=== PATIENT | female | born 1975 | race African-American/Black ===

== ENCOUNTER 2019-01-14 10:36 | Day surgery (SDC) | payer OTHER, MEDICAID ==
[~2019-01-14] VITALS: Ht 160 cm; Wt 128.5 kg
[~2019-01-14 10:36] MED LIST: ALBU18HF2 IH; ASPI-1159 PO; CARV25TA47 PO; CLON-457 PO; FERR-71 MT; FURO20TA4 PO; GLYB5TAB7 PO; HYDR-4001 PO; HYDR100T26 PO; INSLIS SUBCUT; INSU3INS6 SUBCUT; IPRA3AMP31 NEB; ISOS30TA12 PO; LORA10TA7 PO; MECL-109 MT; MOME13HF2 INH; SIMV10TA6 PO; ZOLP5TAB2 PO
[2019-01-14] MEDS ORDERED: SODIUM CHLORIDE 0.9% 500 ML IV NR (10:45)
[2019-01-14 11:34] LABS: BASOPHILS % 0.7 % (0.0-2.0); EOSINOPHILS % 0.8 % (0.0-5.0); HEMATOCRIT. 38.2 % (36.0-48.0); HEMOGLOBIN. 12.3 g/dL (12.0-16.0); LYMPHOCYTES % 29.2 % (20.0-50.0); MEAN CORPUSCULAR HEMOGLOBIN 29.6 pg (28.0-32.0); MEAN PLATELET VOLUME 8.1 fl (7.4-10.4); MONOCYTES % 8.3 % (2.0-8.0); PLATELET 276 x1000/uL (130-400); RED BLOOD CELL COUNT 4.16 mill/uL (4.2-5.4); RED CELL DISTRIBUTION WIDTH 16.8 % (11.6-14.6)
[2019-01-14 11:35] LABS: UCG SCREEN NEGATIVE
[2019-01-14 11:41] LABS: PROTHROMBIN TIME 10.1 sec (9.6-11.0)
[2019-01-14] MEDS ORDERED: THROMBIN (BOVINE) 5000 UNITS/VIAL TOP ONE (12:10)
[2019-01-14] MEDS ORDERED: LIDOCAINE HCL 1% 20ML VIAL (Pyxis) INJ ONE ×2 (12:10→14:23)
[2019-01-14] MEDS ORDERED: HEPARIN SODIUM 1,000 UNIT/1ML VIAL IV ONE ×2 (12:11→20:15)
[2019-01-14] MEDS ORDERED: BUPIVACAINE HCL/PF 0.5% (5MG/ML) 10ML ONE ×2 (12:11→12:44)
[2019-01-14] MEDS ORDERED: BACITRACIN 50,000 UNITS/VIAL ONE (12:14)
[2019-01-14] MEDS ORDERED: INSU100I32 SQ (12:17)
[2019-01-14] MEDS ORDERED: ASPI-1159 PO (12:20)
[2019-01-14] MEDS ORDERED: CLOP75TA16 PO (12:20)
[2019-01-14] MEDS ORDERED: CLINDAMYCIN 900 MG in DEXTROSE 5% WATER 50 ML IV ONE (12:32)
[2019-01-14] MEDS ORDERED: PROPOFOL 200MG/20ML VIAL IV ONE (14:22)
[2019-01-14] MEDS ORDERED: FENTANYL CITRATE/PF 50MCG/ML 2ML VIAL ONE (14:22)
[2019-01-14] MEDS ORDERED: MIDAZOLAM HCL 2 MG/2 ML VIAL ONE (14:22)
[2019-01-14] MEDS ORDERED: ROCURONIUM BROMIDE 10MG/ML VIAL 5ML IV ONE (14:23)
[2019-01-14] MEDS ORDERED: SODIUM CHLORIDE 0.9% 10ML VIAL ONE (14:32)
[2019-01-14] MEDS ORDERED: EPHEDRINE SULFATE 50MG/ML VIAL ONE (14:32)
[2019-01-14] MEDS ORDERED: PAPAVERINE HCL 30 MG/ML 2ML IV ONE (15:28)
[2019-01-14] MEDS ORDERED: DEXTROSE 50% WATER 50ML SYRINGE IV ONE (15:45)
[2019-01-14] MEDS ORDERED: ONDANSETRON HCL 4MG/2ML INJ ONE (16:56)
[2019-01-14] MEDS ORDERED: ALBUTEROL 90MCG/PUFF 17GM INHALER INH ONE (17:15)
[2019-01-14] MEDS ORDERED: HYDROCODONE/ACETAMINOPHEN 5/325MG TABLET PO PRN (17:30)
[2019-01-14] MEDS ORDERED: ONDANSETRON HCL 4MG/2ML INJ IV PRN (17:45)
[2019-01-14] MEDS ORDERED: MORPHINE SULFATE 4 MG/ML CPJ (NOT FOR IM USE) IV PRN (17:45)
[2019-01-14] MEDS ORDERED: MEPERIDINE HCL/PF 25MG/ML CPJ IV PRN (17:45)
[2019-01-14] MEDS ORDERED: SODIUM CHLORIDE 0.9% 1,000 ML IV ONE (18:00)
[2019-01-14] MEDS: HYDROMORPHONE HCL/PF 2MG/ML CPJ IV PRN ×2 (20:08→20:28)
[2019-01-14 20:28] VITALS: BP 132/45
== END 2019-01-14 21:50 | disposition home or self-care (01) ==
LOC: OR 10:36
PROVIDERS: ATTEND Surgery Vascular Surgery
DX: I12.0 Hypertensive chronic kidney disease with stage 5 chronic kidney disease or end stage renal disease (principal); N18.6 End stage renal disease; E11.22 Type 2 diabetes mellitus with diabetic chronic kidney disease; E66.01 Morbid (severe) obesity due to excess calories; I25.10 Atherosclerotic heart disease of native coronary artery without angina pectoris; E78.00 Pure hypercholesterolemia, unspecified; K21.9 Gastro-esophageal reflux disease without esophagitis; J45.909 Unspecified asthma, uncomplicated; D64.9 Anemia, unspecified; I25.2 Old myocardial infarction; Z98.891 History of uterine scar from previous surgery; Z98.890 Other specified postprocedural states; Z95.5 Presence of coronary angioplasty implant and graft; Z88.0 Allergy status to penicillin; Z79.899 Other long term (current) drug therapy; Z79.82 Long term (current) use of aspirin; Z68.43 Body mass index [BMI] 50.0-59.9, adult; Z88.8 Allergy status to other drugs, medicaments and biological substances; Z91.011 Allergy to milk products; Z83.3 Family history of diabetes mellitus; Z82.49 Family history of ischemic heart disease and other diseases of the circulatory system; Z82.5 Family history of asthma and other chronic lower respiratory diseases; Z95.1 Presence of aortocoronary bypass graft
CPT/HCPCS: 36415; 36818; 80048; 81025; 82962; 85025; 85610; 85730; J1170; J1644; J2175; J2250; J2405; J2440; J2704; J3010; J3490; J7040; J7060

== ENCOUNTER 2019-05-19 10:57 | Inpatient (IN) | payer MEDICARE, MEDICAID ==
[~2019-05-19] VITALS: Ht 160 cm; Wt 135.6 kg
[~2019-05-19 10:57] MED LIST changes: -ASPI-1159 PO; +ASPI-1393 PO; +CLOP75TA4 PO; -FERR-71 MT; +FERR-71 PO; +INSU100I32 SQ; -MECL-109 MT; +MECL-109 PO
[2019-05-19] MEDS ORDERED: MORPHINE SULFATE 4 MG/ML CPJ (NOT FOR IM USE) IV STA (15:10)
[2019-05-19] MEDS ORDERED: ONDANSETRON HCL 4MG/2ML INJ IV STA (15:10)
[2019-05-19 16:08] LABS: BASOPHILS % 0.6 % (0.0-2.0); CHLORIDE 95 mEq/L (98-107); EOSINOPHILS % 0.9 % (0.0-5.0); HEMATOCRIT. 42.5 % (36.0-48.0); HEMOGLOBIN. 13.9 g/dL (12.0-16.0); LYMPHOCYTES % 28.2 % (20.0-50.0); MEAN CORPUSCULAR HEMOGLOBIN 31.7 pg (28.0-32.0); MEAN PLATELET VOLUME 7.9 fl (7.4-10.4); MONOCYTES % 7.3 % (2.0-8.0); PLATELET 285 x1000/uL (130-400); RED BLOOD CELL COUNT 4.38 mill/uL (4.2-5.4)
[2019-05-19 16:09] LABS: HCG SCREEN NEGATIVE; PROTHROMBIN TIME 10.3 sec (9.6-11.0)
[2019-05-19] MEDS ORDERED: NA PHOS,M-B/NA PHOS,DI-BA ENEMA 118ML PR ONE (17:15)
[2019-05-19 23:01] VITALS: BP 131/67
[2019-05-19 23:07] VITALS: BP 131/61
[2019-05-19] MEDS ORDERED: CLONIDINE 0.1MG TABLET PO PRN (23:15)
[2019-05-19] MEDS ORDERED: ACETAMINOPHEN 325MG TABLET PO PRN (23:15)
[2019-05-20] MEDS ORDERED: GLIM2TAB2 PO (00:03)
[2019-05-20] MEDS ORDERED: AMLO5TAB4 PO (00:03)
[2019-05-20] MEDS ORDERED: TRAM50TA3 PO (00:13)
[2019-05-20] MEDS ORDERED: ONDA4TAB11 PO (00:13)
[2019-05-20] MEDS ORDERED: SENN-170 PO (00:13)
[2019-05-20] MEDS ORDERED: SEVE800T8 PO (00:13)
[2019-05-20] MEDS ORDERED: CALC667C PO (00:13)
[2019-05-20] MEDS ORDERED: LACT10SO6 PO (00:13)
[2019-05-20] MEDS ORDERED: INSU100I24 SUBCUT (00:18)
[2019-05-20] MEDS ORDERED: TEMAZEPAM 15MG CAPSULE PO PRN (01:00)
[2019-05-20] MEDS: ONDANSETRON HCL 4MG/2ML INJ IV PRN ×2 (01:35→10:36)
[2019-05-20] MEDS: MORPHINE SULFATE 2 MG/ML CPJ (NOT FOR IM USE) IV PRN (01:35)
[2019-05-20 04:00] VITALS: BP 133/45
[2019-05-20 06:38] LABS: BASOPHILS % 0.6 % (0.0-2.0); EOSINOPHILS % 1.9 % (0.0-5.0); HEMATOCRIT. 37.2 % (36.0-48.0); HEMOGLOBIN. 12.1 g/dL (12.0-16.0); LYMPHOCYTES % 29.8 % (20.0-50.0); MEAN CORPUSCULAR HEMOGLOBIN 31.6 pg (28.0-32.0); MEAN CORPUSCULAR VOLUME 97.3 fL (81.0-99.0); MEAN PLATELET VOLUME 8.1 fl (7.4-10.4); MONOCYTES % 10.9 % (2.0-8.0); NEUTROPHILS % 56.8 % (40.0-76.0); PLATELET 249 x1000/uL (130-400); RED BLOOD CELL COUNT 3.82 mill/uL (4.2-5.4); RED CELL DISTRIBUTION WIDTH 15.7 % (11.6-14.6)
[2019-05-20 07:04] LABS: CHLORIDE 97 mEq/L (98-107)
[2019-05-20] MEDS ORDERED: DEXTROSE 50% WATER 50ML SYRINGE IV PRN (07:15)
[2019-05-20 07:16] LABS: HDL CHOLESTEROL 43 mg/dL (40-59)
[2019-05-20 07:17] LABS: LDL CHOLESTEROL 82 mg/dL (5-100)
[2019-05-20 07:18] LABS: CREATINE KINASE 251 IU/L (26-192)
[2019-05-20 07:19] LABS: T4 FREE 1.48 ng/dL (0.76-1.46)
[2019-05-20] MEDS: BLOOD SUGAR DIAGNOSTIC STRIP TEST SCH ×4 (07:40→21:34)
[2019-05-20 08:00] VITALS: BP 111/59
[2019-05-20] MEDS: INSULIN LISPRO 100 UNITS/ML SUBCUT SCH ×4 (08:10→21:33)
[2019-05-20] MEDS: LACTULOSE 20G/30ML UDC PO SCH ×2 (10:17→16:41)
[2019-05-20] MEDS: ENOXAPARIN 30MG/0.3ML SYR SUBCUT SCH (10:17)
[2019-05-20] MEDS: HYDROCODONE/ACETAMINOPHEN 5/325MG TABLET PO PRN ×2 (10:37→21:44)
[2019-05-20 12:00] VITALS: BP 130/70
[2019-05-20] MEDS ORDERED: HYDRALAZINE 20MG/ML VIAL IV PRN (12:45)
[2019-05-20] MEDS ORDERED: DIPHENHYDRAMINE 50MG/ML VIAL IV PRN (12:45)
[2019-05-20] MEDS ORDERED: MECLIZINE 25MG TABLET PO PRN (12:45)
[2019-05-20] MEDS ORDERED: IPRATROPIUM/ALBUTEROL 0.5-3(2.5)MG/3ML NEB HHN PRN (12:45)
[2019-05-20] MEDS: IPRATROPIUM/ALBUTEROL 0.5-3(2.5)MG/3ML NEB HHN PRN ×2 (13:09→17:22)
[2019-05-20] MEDS ORDERED: LEVOFLOXACIN 500MG PREMIX 100 ML IV NR (14:00)
[2019-05-20] MEDS: SEVELAMER CARBONATE 800 MG TABLET PO SCH ×3 (14:20→21:32)
[2019-05-20] MEDS: CALCIUM ACETATE 667MG CAPSULE PO SCH ×2 (14:20→16:40)
[2019-05-20 15:59] LABS: CREATINE KINASE 226 IU/L (26-192)
[2019-05-20 16:00] VITALS: BP 150/111
[2019-05-20] MEDS: DOCUSATE SODIUM 100MG CAPSULE PO SCH (16:41)
[2019-05-20] MEDS: FERROUS SULFATE 325MG TABLET PO SCH (16:43)
[2019-05-20 20:00] VITALS: BP 126/65
[2019-05-20] MEDS ORDERED: MEDICATION NOT ON FORMULARY EA (Simvastatin 10 MG) PO SCH (21:00)
[2019-05-20] MEDS ORDERED: SENNOSIDES 8.6MG TABLET PO SCH (21:00)
[2019-05-20] MEDS: ATORVASTATIN CALCIUM 10MG TABLET PO SCH (21:32)
[2019-05-21] VITALS: BP 117/69
[2019-05-21 04:00] VITALS: BP 135/59
[2019-05-21] MEDS: INSULIN LISPRO 100 UNITS/ML SUBCUT SCH ×4 (06:40→22:23)
[2019-05-21] MEDS: BLOOD SUGAR DIAGNOSTIC STRIP TEST SCH ×4 (06:40→21:44)
[2019-05-21 07:40] LABS: HEMATOCRIT 35.6 % (36.0-48.0); HEMOGLOBIN 11.8 g/dL (12.0-16.0); MEAN CORPUSCULAR HEMOGLOBIN 32.1 pg (28.0-32.0); MEAN CORPUSCULAR VOLUME 96.9 fL (81.0-99.0); PLATELET 224 x1000/uL (130-400); RED BLOOD CELL COUNT 3.67 mill/uL (4.2-5.4); RED CELL DISTRIBUTION WIDTH 15.4 % (11.6-14.6)
[2019-05-21] MEDS: GLIMEPIRIDE 2MG TABLET PO SCH (07:40)
[2019-05-21 07:58] LABS: CHLORIDE 93 mEq/L (98-107)
[2019-05-21 08:00] VITALS: BP 117/70
[2019-05-21] MEDS: CALCIUM ACETATE 667MG CAPSULE PO SCH ×3 (08:10→18:08)
[2019-05-21] MEDS: FERROUS SULFATE 325MG TABLET PO SCH ×2 (08:10→18:09)
[2019-05-21] MEDS: SEVELAMER CARBONATE 800 MG TABLET PO SCH ×3 (08:10→18:08)
[2019-05-21 08:29] LABS: PHOSPHORUS 8.9 mg/dL (2.5-4.9)
[2019-05-21] MEDS ORDERED: LIDOCAINE HCL 1% 20ML VIAL (Pyxis) INJ ONE (08:52)
[2019-05-21] MEDS: ENOXAPARIN 30MG/0.3ML SYR SUBCUT SCH (09:00)
[2019-05-21] MEDS: LACTULOSE 20G/30ML UDC PO SCH (09:00)
[2019-05-21] MEDS: DOCUSATE SODIUM 100MG CAPSULE PO SCH ×2 (09:00→18:08)
[2019-05-21] MEDS: ASPIRIN 81MG EC TABLET PO SCH (09:00)
[2019-05-21] MEDS: CLOPIDOGREL 75MG TABLET PO SCH (09:52)
[2019-05-21] MEDS ORDERED: IOHEXOL-300 50 ML BOTTLE IV ONE (09:55)
[2019-05-21] MEDS: ONDANSETRON HCL 4MG/2ML INJ IV PRN ×2 (11:07→21:36)
[2019-05-21 12:00] VITALS: BP 142/73
[2019-05-21] MEDS ORDERED: DIPHENHYDRAMINE 50MG/ML VIAL IV NR (15:30)
[2019-05-21 16:00] VITALS: BP 136/55
[2019-05-21] MEDS ORDERED: LACTULOSE 20G/30ML UDC PO PRN (16:15)
[2019-05-21] MEDS ORDERED: SENNOSIDES 8.6MG TABLET PO PRN (17:00)
[2019-05-21] MEDS: METOCLOPRAMIDE HCL 10MG/2ML VIAL IV SCH (18:08)
[2019-05-21 20:00] VITALS: BP 111/68
[2019-05-21] MEDS: MORPHINE SULFATE 2 MG/ML CPJ (NOT FOR IM USE) IV PRN (21:44)
[2019-05-21] MEDS: ATORVASTATIN CALCIUM 10MG TABLET PO SCH (21:45)
[2019-05-22] VITALS: BP 107/62
[2019-05-22] MEDS: METOCLOPRAMIDE HCL 10MG/2ML VIAL IV SCH ×3 (00:15→12:58)
[2019-05-22] MEDS: IPRATROPIUM/ALBUTEROL 0.5-3(2.5)MG/3ML NEB HHN PRN (00:59)
[2019-05-22 04:00] VITALS: BP 127/50
[2019-05-22] MEDS: BLOOD SUGAR DIAGNOSTIC STRIP TEST SCH ×2 (06:33→12:26)
[2019-05-22 06:49] LABS: HEMATOCRIT 38.5 % (36.0-48.0); HEMOGLOBIN 12.5 g/dL (12.0-16.0); MEAN CORPUSCULAR HEMOGLOBIN 31.6 pg (28.0-32.0); MEAN CORPUSCULAR VOLUME 97.4 fL (81.0-99.0); PLATELET 216 x1000/uL (130-400); RED BLOOD CELL COUNT 3.95 mill/uL (4.2-5.4); RED CELL DISTRIBUTION WIDTH 15.5 % (11.6-14.6)
[2019-05-22 07:28] LABS: PHOSPHORUS 6.6 mg/dL (2.5-4.9)
[2019-05-22 08:35] VITALS: BP 114/57
[2019-05-22] MEDS: DOCUSATE SODIUM 100MG CAPSULE PO SCH (08:58)
[2019-05-22] MEDS: FERROUS SULFATE 325MG TABLET PO SCH (08:58)
[2019-05-22] MEDS: CALCIUM ACETATE 667MG CAPSULE PO SCH ×2 (08:58→14:47)
[2019-05-22] MEDS: CLOPIDOGREL 75MG TABLET PO SCH (08:58)
[2019-05-22] MEDS: ASPIRIN 81MG EC TABLET PO SCH (08:58)
[2019-05-22] MEDS: GLIMEPIRIDE 2MG TABLET PO SCH (08:58)
[2019-05-22] MEDS: MORPHINE SULFATE 2 MG/ML CPJ (NOT FOR IM USE) IV PRN (08:59)
[2019-05-22] MEDS: ENOXAPARIN 30MG/0.3ML SYR SUBCUT SCH (09:09)
[2019-05-22] MEDS: INSULIN LISPRO 100 UNITS/ML SUBCUT SCH ×2 (09:11→12:53)
[2019-05-22] MEDS: SEVELAMER CARBONATE 800 MG TABLET PO SCH (09:16)
[2019-05-22] MEDS ORDERED: SEVELAMER CARBONATE 800 MG TABLET PO SCH (13:10)
[2019-05-22 13:27] VITALS: BP 121/60
[2019-05-22] MEDS: HYDROCODONE/ACETAMINOPHEN 5/325MG TABLET PO PRN (13:34)
[2019-05-22] MEDS ORDERED: LEVOFLOXACIN 250MG PREMIX 50 ML IV SCH (14:00)
[2019-05-22 15:44] VITALS: BP 121/67
[2019-05-22 15:45] VITALS: BP 121/67
[2019-05-26 15:08] LABS: ATYPICAL pANCA <1:20 titer (Neg:<1:20)
[2019-05-27 10:11] LABS: SACCHAROMYCES CEREVISIAE IGG <20.0 Units (0.0-24.9)
[2019-05-28 10:11] LABS: SACCHAROMYCES CEREVISIAE IGM <20.0 Units (0.0-24.9)
== END 2019-05-22 18:47 | disposition home or self-care (01) | DRG 73 ==
LOC: ER 10:57 → 7WST 17:51 → EDBEDREQ 18:07 → EDBEDREQTM 18:07 → ENRESERV 22:07
PROVIDERS: ADMIT Internal Medicine; ATTEND Internal Medicine
PROC: 5A1D70Z Performance of Urinary Filtration, Intermittent, Less than 6 Hours Per Day (ICD-10-PCS; 2019-05-20)
PROC: B5161ZA Fluoroscopy of Right Subclavian Vein using Low Osmolar Contrast, Guidance (ICD-10-PCS; principal; 2019-05-21)
PROC: 05H533Z Insertion of Infusion Device into Right Subclavian Vein, Percutaneous Approach (ICD-10-PCS; 2019-05-21)
PROC: B546ZZA Ultrasonography of Right Subclavian Vein, Guidance (ICD-10-PCS; 2019-05-21)
PROC: 5A1D70Z Performance of Urinary Filtration, Intermittent, Less than 6 Hours Per Day (ICD-10-PCS; 2019-05-22)
DX: E11.43 Type 2 diabetes mellitus with diabetic autonomic (poly)neuropathy (principal); N18.6 End stage renal disease; I12.0 Hypertensive chronic kidney disease with stage 5 chronic kidney disease or end stage renal disease; Z68.43 Body mass index [BMI] 50.0-59.9, adult; K59.00 Constipation, unspecified; D64.9 Anemia, unspecified; E11.22 Type 2 diabetes mellitus with diabetic chronic kidney disease; E66.9 Obesity, unspecified; E78.5 Hyperlipidemia, unspecified; I25.10 Atherosclerotic heart disease of native coronary artery without angina pectoris; J44.9 Chronic obstructive pulmonary disease, unspecified; K31.84 Gastroparesis; D72.829 Elevated white blood cell count, unspecified; E83.39 Other disorders of phosphorus metabolism; K42.9 Umbilical hernia without obstruction or gangrene; K57.30 Diverticulosis of large intestine without perforation or abscess without bleeding; M46.90 Unspecified inflammatory spondylopathy, site unspecified; M48.061 Spinal stenosis, lumbar region without neurogenic claudication; J45.909 Unspecified asthma, uncomplicated; M51.26 Other intervertebral disc displacement, lumbar region; Z79.02 Long term (current) use of antithrombotics/antiplatelets; Z79.4 Long term (current) use of insulin; Z79.82 Long term (current) use of aspirin; Z79.899 Other long term (current) drug therapy; Z88.0 Allergy status to penicillin; Z95.1 Presence of aortocoronary bypass graft; Z99.2 Dependence on renal dialysis; Z98.891 History of uterine scar from previous surgery; Z91.041 Radiographic dye allergy status; Z91.011 Allergy to milk products; Z79.1 Long term (current) use of non-steroidal anti-inflammatories (NSAID)
CPT/HCPCS: 36415; 36573; 71045; 74018; 74176; 76700; 80048; 80061; 82550; 82962; 83036; 83605; 83735; 84100; 84439; 84443; 84484; 84703; 85027; 86256; 86671; 93005; 93970; 94640; 99285; C1725; C1893; J1200; J1650; J1815; J1956; J2270; J2405; J2765; J3490; J7040; J7620; Q9967

== ENCOUNTER 2021-07-11 09:36 | Emergency (ER) | payer OTHER, MEDICAID ==
[~2021-07-11] VITALS: Ht 167.6 cm; Wt 127.0 kg
[~2021-07-11 09:36] MED LIST changes: +AMLO5TAB4 PO; -ASPI-1393 PO; +ASPI-1497 PO; +CALC667C PO; -CLON-457 PO; +CLOP-31 PO; -CLOP75TA4 PO; -FURO20TA4 PO; +GLIM2TAB30 PO; -GLYB5TAB7 PO; -HYDR-4001 PO; -INSLIS SUBCUT; +INSU100I24 SUBCUT; -INSU3INS6 SUBCUT; +LACT10SO6 PO; -MECL-109 PO; +MECL-159 PO; +ONDA4TAB11 PO; +SENN-257 PO; +SEVE800T8 PO; -SIMV10TA6 PO; +SIMV10TA97 PO; +TRAM50TA3 PO
[2021-07-11] MEDS ORDERED: MORPHINE SULFATE 10 MG/ML CPJ IM ONE (10:00)
[2021-07-11] MEDS ORDERED: T3 PO (12:25)
[2021-07-11] MEDS ORDERED: HYDROCODONE/ACETAMINOPHEN 5/325MG TABLET PO ONE (12:30)
[2021-07-11] MEDS ORDERED: HYDROCODONE/ACETAMINOPHEN 10/325MG TABLET PO ONE (13:30)
[2021-07-11 13:53] VITALS: BP 122/66
== END 2021-07-11 14:02 | disposition home or self-care (01) ==
LOC: ER 09:36
DX: S30.0XXA Contusion of lower back and pelvis, initial encounter (principal); E11.22 Type 2 diabetes mellitus with diabetic chronic kidney disease; I13.11 Hypertensive heart and chronic kidney disease without heart failure, with stage 5 chronic kidney disease, or end stage renal disease; N18.6 End stage renal disease; E78.00 Pure hypercholesterolemia, unspecified; J45.909 Unspecified asthma, uncomplicated; I25.10 Atherosclerotic heart disease of native coronary artery without angina pectoris; Z89.412 Acquired absence of left great toe; Z88.0 Allergy status to penicillin; Z91.041 Radiographic dye allergy status; Z91.011 Allergy to milk products; Z99.2 Dependence on renal dialysis; Z95.1 Presence of aortocoronary bypass graft; Z98.890 Other specified postprocedural states; Z79.4 Long term (current) use of insulin; W01.0XXA Fall on same level from slipping, tripping and stumbling without subsequent striking against object, initial encounter; Y93.89 Activity, other specified; Y92.018 Other place in single-family (private) house as the place of occurrence of the external cause
CPT/HCPCS: 72100; 73610; 73620; 96372; 99284; J2270

== ENCOUNTER 2022-01-20 08:14 | Inpatient (IN) | payer MEDICARE, MEDICAID ==
[~2022-01-20] VITALS: Ht 160 cm; Wt 126.6 kg
[~2022-01-20 08:14] MED LIST changes: -AMLO5TAB4 PO; -CALC667C PO; -FERR-71 PO; +GABA-532 MT; -HYDR100T26 PO; +INSLIS SUBCUT; -INSU100I24 SUBCUT; -INSU100I32 SQ; -ISOS30TA12 PO; -LACT10SO6 PO; +LIDO5CRE2 TP; -MECL-159 PO; +METO10TA3 MT; +NEPVIT MT; +PANT40TA51 MT; +SERT25TA74 MT; +T3 PO; -TRAM50TA3 PO; -ZOLP5TAB2 PO
[2022-01-20] MEDS ORDERED: METHYLPREDNISOLONE SOD SUCC 125 MG/2 ML VIAL IV ONE (08:45)
[2022-01-20] MEDS ORDERED: DIPHENHYDRAMINE 50MG/ML VIAL IV ONE (08:45)
[2022-01-20] MEDS ORDERED: FAMOTIDINE 20MG/2ML VIAL IV ONE (08:45)
[2022-01-20 09:27] LABS: BASOPHILS % 0.3 % (0.0-2.0); EOSINOPHILS % 0.4 % (0.0-5.0); HEMATOCRIT. 36.7 % (36.0-48.0); HEMOGLOBIN. 11.9 g/dL (12.0-16.0); LYMPHOCYTES % 17.8 % (20.0-50.0); MEAN CORPUSCULAR HEMOGLOBIN 30.3 pg (28.0-32.0); MEAN CORPUSCULAR VOLUME 93.3 fL (81.0-99.0); MEAN PLATELET VOLUME 8.4 fl (7.4-10.4); MONOCYTES % 8.2 % (2.0-8.0); NEUTROPHILS % 73.3 % (40.0-76.0); PLATELET 250 x1000/uL (130-400); RED BLOOD CELL COUNT 3.93 mill/uL (4.2-5.4); RED CELL DISTRIBUTION WIDTH 15.1 % (11.6-14.6)
[2022-01-20 09:32] LABS: CHLORIDE 95 mEq/L (98-107)
[2022-01-20 09:33] LABS: HCG SCREEN NEGATIVE
[2022-01-20 09:41] LABS: ETHANOL BLOOD < 10 mg/dL
[2022-01-20 09:55] LABS: INR 0.9; PROTHROMBIN TIME 10.2 sec (9.6-11.0)
[2022-01-20] MEDS ORDERED: IOHEXOL-350 100 ML BOTTLE ONE (10:03)
[2022-01-20] MEDS ORDERED: LABETALOL 5MG/ML SYR 20 MG/4 ML SYRINGE IV ONE (12:15)
[2022-01-20] MEDS ORDERED: ACETAMINOPHEN 325MG TABLET PO ONE (12:15)
[2022-01-20] MEDS ORDERED: ASPIRIN 81MG TABLET PO ONE (12:30)
[2022-01-20] MEDS ORDERED: ACETAMINOPHEN 325MG TABLET PO PRN ×2 (13:45)
[2022-01-20] MEDS ORDERED: ZOLPIDEM TARTRATE 5MG TABLET PO PRN (13:45)
[2022-01-20] MEDS ORDERED: CLONIDINE 0.1MG TABLET PO PRN (13:45)
[2022-01-20] MEDS ORDERED: MAGNESIUM/ALUMINUM HYDROXIDE/SIMETHICONE 30ML UDC PO PRN (13:45)
[2022-01-20] MEDS ORDERED: DEXTROSE 50% WATER 50ML SYRINGE IV PRN ×2 (13:45→23:00)
[2022-01-20] MEDS ORDERED: ONDANSETRON HCL 4MG/2ML INJ IV PRN (13:45)
[2022-01-20] MEDS ORDERED: DIPHENHYDRAMINE 50MG/ML VIAL IV PRN (13:45)
[2022-01-20] MEDS: SODIUM CHLORIDE 0.9% INJ 3ML FLUSH IVF SCH ×2 (14:00→23:16)
[2022-01-20 14:55] VITALS: BP 134/60
[2022-01-20 16:00] VITALS: BP 147/73
[2022-01-20] MEDS: BLOOD SUGAR DIAGNOSTIC STRIP TEST SCH ×2 (17:54→21:34)
[2022-01-20] MEDS: CALCIUM ACETATE 667MG CAPSULE PO SCH (17:55)
[2022-01-20] MEDS ORDERED: INSULIN LISPRO 100 UNITS/ML SUBCUT SCH (18:10)
[2022-01-20] MEDS ORDERED: NALOXONE HCL 0.4MG/ML VIAL IV PRN (18:45)
[2022-01-20] MEDS ORDERED: HYDROCODONE/ACETAMINOPHEN 10/325MG TABLET PO PRN (19:00)
[2022-01-20] MEDS: HYDROCODONE/ACETAMINOPHEN 10/325MG TABLET PO PRN (19:19)
[2022-01-20 20:00] VITALS: BP 138/49
[2022-01-20] MEDS ORDERED: INSULIN LISPRO 100 UNITS/ML SUBCUT ONE (23:00)
[2022-01-20] MEDS: ATORVASTATIN CALCIUM 10MG TABLET PO SCH (23:15)
[2022-01-20] MEDS: FAMOTIDINE 20MG TABLET PO SCH (23:16)
[2022-01-20] MEDS: INSULIN GLARGINE 100 UNITS/ML SUBCUT SCH (23:17)
[2022-01-21] VITALS: BP 153/79
[2022-01-21] MEDS ORDERED: IPRATROPIUM/ALBUTEROL 0.5-3(2.5)MG/3ML NEB HHN PRN (01:45)
[2022-01-21] MEDS: HYDROCODONE/ACETAMINOPHEN 10/325MG TABLET PO PRN ×2 (03:39→16:26)
[2022-01-21 04:00] VITALS: BP 148/68
[2022-01-21] MEDS: SODIUM CHLORIDE 0.9% INJ 3ML FLUSH IVF SCH ×3 (05:26→21:07)
[2022-01-21] MEDS: BLOOD SUGAR DIAGNOSTIC STRIP TEST SCH ×4 (06:14→21:07)
[2022-01-21] MEDS: GLIMEPIRIDE 2MG TABLET PO SCH (06:29)
[2022-01-21] MEDS: IPRATROPIUM/ALBUTEROL 0.5-3(2.5)MG/3ML NEB HHN PRN (06:31)
[2022-01-21 08:00] VITALS: BP 126/54
[2022-01-21] MEDS: CALCIUM ACETATE 667MG CAPSULE PO SCH ×3 (08:15→17:45)
[2022-01-21] MEDS: ASPIRIN 81MG EC TABLET PO SCH (08:15)
[2022-01-21] MEDS: CLOPIDOGREL 75MG TABLET PO SCH (08:16)
[2022-01-21] MEDS: INSULIN LISPRO 100 UNITS/ML SUBCUT SCH ×4 (08:51→21:00)
[2022-01-21 12:00] VITALS: BP 117/50
[2022-01-21 14:41] LABS: HEPATITIS B SURFACE ANTIGEN NEGATIVE
[2022-01-21 16:00] VITALS: BP 123/44
[2022-01-21] MEDS: DIPHENHYDRAMINE 50MG/ML VIAL IV PRN ×2 (16:25→23:27)
[2022-01-21] MEDS: POLYETHYLENE GLYCOL 3350 (17GM) 1 DOSE PACK PO SCH (16:26)
[2022-01-21] MEDS: LIDOCAINE 5% PATCH TOP SCH (17:45)
[2022-01-21 20:00] VITALS: BP 112/46
[2022-01-21] MEDS ORDERED: SENNOSIDES/DOCUSATE SOD 8.6/50MG TABLET PO PRN (21:00)
[2022-01-21] MEDS: ATORVASTATIN CALCIUM 10MG TABLET PO SCH (21:18)
[2022-01-21] MEDS: FAMOTIDINE 20MG TABLET PO SCH (21:18)
[2022-01-21] MEDS: INSULIN GLARGINE 100 UNITS/ML SUBCUT SCH (21:20)
[2022-01-22] VITALS: BP 101/40
[2022-01-22 04:00] VITALS: BP 156/82
[2022-01-22] MEDS: SODIUM CHLORIDE 0.9% INJ 3ML FLUSH IVF SCH ×2 (05:44→13:25)
[2022-01-22] MEDS: BLOOD SUGAR DIAGNOSTIC STRIP TEST SCH ×2 (06:11→13:25)
[2022-01-22 08:00] VITALS: BP 138/69
[2022-01-22] MEDS: INSULIN LISPRO 100 UNITS/ML SUBCUT SCH ×2 (08:10→13:27)
[2022-01-22] MEDS: GLIMEPIRIDE 2MG TABLET PO SCH (08:54)
[2022-01-22] MEDS: ASPIRIN 81MG EC TABLET PO SCH (08:55)
[2022-01-22] MEDS: POLYETHYLENE GLYCOL 3350 (17GM) 1 DOSE PACK PO SCH (08:55)
[2022-01-22] MEDS: CLOPIDOGREL 75MG TABLET PO SCH (08:55)
[2022-01-22] MEDS: CALCIUM ACETATE 667MG CAPSULE PO SCH ×2 (08:55→13:25)
[2022-01-22] MEDS: LIDOCAINE 5% PATCH TOP SCH (08:56)
[2022-01-22] MEDS: DIPHENHYDRAMINE 50MG/ML VIAL IV PRN ×2 (08:57→15:44)
[2022-01-22] MEDS: IPRATROPIUM/ALBUTEROL 0.5-3(2.5)MG/3ML NEB HHN PRN (09:02)
[2022-01-22 12:00] VITALS: BP 125/67
[2022-01-22 14:37] VITALS: BP 126/65
== END 2022-01-22 16:15 | disposition home or self-care (01) | DRG 811 ==
LOC: ER 08:23 → EDBEDREQ 11:23 → EDBEDREQTM 11:23 → EDBEDREQSVC 11:23 → EDBEDREQ 12:10 → 7WST 12:16 → EDBEDREQ 13:15 → EDBEDREQTM 13:15
PROVIDERS: ADMIT Internal Medicine; ATTEND Internal Medicine
PROC: 5A1D70Z Performance of Urinary Filtration, Intermittent, Less than 6 Hours Per Day (ICD-10-PCS; principal; 2022-01-21)
DX: D64.9 Anemia, unspecified (principal); N18.6 End stage renal disease; G45.9 Transient cerebral ischemic attack, unspecified; E87.1 Hypo-osmolality and hyponatremia; Z68.42 Body mass index [BMI] 45.0-49.9, adult; I12.0 Hypertensive chronic kidney disease with stage 5 chronic kidney disease or end stage renal disease; I16.0 Hypertensive urgency; M47.22 Other spondylosis with radiculopathy, cervical region; M48.02 Spinal stenosis, cervical region; E78.00 Pure hypercholesterolemia, unspecified; E11.51 Type 2 diabetes mellitus with diabetic peripheral angiopathy without gangrene; E11.22 Type 2 diabetes mellitus with diabetic chronic kidney disease; E11.65 Type 2 diabetes mellitus with hyperglycemia; E66.01 Morbid (severe) obesity due to excess calories; L29.9 Pruritus, unspecified; J44.9 Chronic obstructive pulmonary disease, unspecified; I25.10 Atherosclerotic heart disease of native coronary artery without angina pectoris; F41.0 Panic disorder [episodic paroxysmal anxiety]; E04.1 Nontoxic single thyroid nodule; Z20.822 Contact with and (suspected) exposure to COVID-19; Z82.49 Family history of ischemic heart disease and other diseases of the circulatory system; Z88.0 Allergy status to penicillin; Z95.1 Presence of aortocoronary bypass graft; Z99.2 Dependence on renal dialysis
CPT/HCPCS: 36415; 70496; 70498; 70551; 71045; 72141; 80053; 80320; 82962; 83036; 84484; 84703; 85025; 86705; 86709; 86803; 87340; 93005; 93306; 94640; 97162; 97166; 99291; J1200; J1815; J2930; J3490; Q9967; G0480

== ENCOUNTER 2023-08-21 08:45 | Inpatient (IN) | payer MEDICARE, MEDICAID ==
[~2023-08-21] VITALS: Ht 160 cm; Wt 98.0 kg
[~2023-08-21 08:45] MED LIST changes: -INSLIS SUBCUT; -IPRA3AMP31 NEB; -MOME13HF2 INH; -T3 PO
[2023-08-21] MEDS ORDERED: MORPHINE SULFATE 4 MG/ML CPJ (NOT FOR IM USE) IV NR (09:30)
[2023-08-21] MEDS ORDERED: DIPHENHYDRAMINE 50MG/ML VIAL IV ONE ×2 (09:30→13:30)
[2023-08-21 09:40] LABS: BASOPHILS % 0.5 % (0.0-2.0); DIFFERENTIAL COMMENT 0; EOSINOPHILS % 3.3 % (0.0-5.0); HEMATOCRIT. 44.5 % (36.0-48.0); HEMOGLOBIN. 14.1 g/dL (12.0-16.0); MEAN CORPUSCULAR HEMOGLOBIN 32.1 pg (28.0-32.0); MEAN CORPUSCULAR HGB CONC 31.7 g/dL (31.0-37.0); MEAN CORPUSCULAR VOLUME 101.1 fL (81.0-99.0); MEAN PLATELET VOLUME 8.5 fl (7.4-10.4); MONOCYTES % 8.9 % (2.0-8.0); NEUTROPHILS % 55.3 % (40.0-76.0); PLATELET 234 x1000/uL (130-400); RED CELL DISTRIBUTION WIDTH 19.4 % (11.6-14.6); WHITE BLOOD COUNT 7.2 x1000/uL (4.5-11.0)
[2023-08-21 10:04] LABS: ALANINE AMINOTRANSFERASE < 7 IU/L (10-49); ALBUMIN 4.4 g/dL (3.2-4.8); ASPARTATE AMINOTRANSFERASE 16 IU/L (<34); BILIRUBIN TOTAL 0.4 mg/dL (0.1-1.0); CALCIUM 9.8 mg/dL (8.7-10.4); CARBON DIOXIDE 26 mEq/L (21-32); CHLORIDE 97 mEq/L (98-107); GLUCOSE 115 mg/dL (70-105); PROTEIN TOTAL 8.1 g/dL (6.0-8.3); SODIUM 138 mEq/L (136-145); TROPONIN I HIGH SENSITIVITY 8 ng/L (3.0-34); UREA NITROGEN BLOOD 34 mg/dL (9-23)
[2023-08-21 10:44] LABS: CREATININE 10.8 mg/dL (0.6-1.0)
[2023-08-21 12:07] LABS: HCG SCREEN NEGATIVE
[2023-08-21] MEDS ORDERED: PREDNISONE 20MG TABLET PO ONE (13:30)
[2023-08-21] MEDS ORDERED: IOHEXOL-350 100 ML BOTTLE ONE (13:47)
[2023-08-21] MEDS ORDERED: MORPHINE SULFATE 2 MG/ML CPJ (NOT FOR IM USE) IV ONE (15:15)
[2023-08-21] MEDS ORDERED: ONDANSETRON HCL 4MG/2ML INJ IV ONE (15:45)
[2023-08-21 16:38] LABS: TROPONIN I HIGH SENSITIVITY 20 ng/L (3.0-34)
[2023-08-21] MEDS ORDERED: NALOXONE HCL 0.4MG/ML VIAL IV PRN (20:45)
[2023-08-21] MEDS: HYDROCODONE/ACETAMINOPHEN 5/325MG TABLET PO PRN (20:52)
[2023-08-22 01:33] VITALS: BP 149/103; PULSE 74; RESP 18; TEMP 98
[2023-08-22] MEDS ORDERED: GLIM2TAB30 PO (02:13)
[2023-08-22] MEDS ORDERED: SIMV-46 PO (02:25)
[2023-08-22] MEDS ORDERED: MOME13HF12 INH (02:40)
[2023-08-22] MEDS ORDERED: TIRZ10PE SUBCUT (02:40)
[2023-08-22] MEDS ORDERED: SUCR500T PO (02:40)
[2023-08-22] MEDS ORDERED: INSNOV SUBCUT (02:40)
[2023-08-22] MEDS ORDERED: IPRA3AMP9 HHN (02:40)
[2023-08-22] MEDS ORDERED: SACU1TAB7 MT (02:40)
[2023-08-22] MEDS ORDERED: INSU100I28 SQ (02:40)
[2023-08-22 04:00] VITALS: BP 120/59; PULSE 70; RESP 15; TEMP 97.5
[2023-08-22] MEDS ORDERED: MORPHINE SULFATE 2 MG/ML CPJ (NOT FOR IM USE) IV ONE (04:15)
[2023-08-22] MEDS ORDERED: NITROGLYCERIN 0.4MG TABLET SL SL PRN (04:15)
[2023-08-22] MEDS ORDERED: DEXTROSE 50% WATER 50ML SYRINGE IV PRN (04:15)
[2023-08-22] MEDS ORDERED: CLONIDINE 0.1MG TABLET PO PRN (04:15)
[2023-08-22] MEDS ORDERED: MAGNESIUM/ALUMINUM HYDROXIDE/SIMETHICONE 30ML UDC PO PRN (05:30)
[2023-08-22] MEDS: OMEPRAZOLE 20MG CAPSULE EXTENDED RELEASE PO SCH (06:22)
[2023-08-22] MEDS: BLOOD SUGAR DIAGNOSTIC STRIP TEST SCH ×4 (06:22→21:01)
[2023-08-22] MEDS: INSULIN LISPRO 100 UNITS/ML SUBCUT SCH ×4 (07:54→21:23)
[2023-08-22 08:00] VITALS: BP_SYST 123; BP_SYST 125; BP_DIAS 64; BP_DIAS 65; PULSE 77; PULSE 80; RESP 14; RESP 18; TEMP 97.7; TEMP 99
[2023-08-22] MEDS: HYDROCODONE/ACETAMINOPHEN 5/325MG TABLET PO PRN ×2 (08:49→10:12)
[2023-08-22] MEDS ORDERED: ENOXAPARIN 30MG/0.3ML SYR SUBCUT SCH (09:00)
[2023-08-22] MEDS ORDERED: ALTEPLASE 2MG/VIAL ITC NR (09:30)
[2023-08-22] MEDS ORDERED: LIDOCAINE HCL 1% 10 MG/ML 10ML VIAL ONE (10:08)
[2023-08-22] MEDS ORDERED: CEFTAZIDIME PENTAHYDRATE 1 G in DEXTROSE 5% WATER 50 ML IV SCH (11:00)
[2023-08-22] MEDS: NITROGLYCERIN OINT 1GM/INCH UDPKT TD SCH ×3 (11:26→23:00)
[2023-08-22 12:00] VITALS: BP 123/64; PULSE 80; RESP 18; TEMP 98
[2023-08-22 16:00] VITALS: BP 123/67; PULSE 80; RESP 19; TEMP 98.2
[2023-08-22] MEDS: MORPHINE SULFATE 2 MG/ML CPJ (NOT FOR IM USE) IV PRN ×2 (17:49→23:22)
[2023-08-22 18:02] LABS: BASOPHILS % 0.6 % (0.0-2.0); EOSINOPHILS % 0.2 % (0.0-5.0); HEMATOCRIT. 35.4 % (36.0-48.0); HEMOGLOBIN. 11.8 g/dL (12.0-16.0); LYMPHOCYTES % 18.4 % (20.0-50.0); MEAN CORPUSCULAR HGB CONC 33.2 g/dL (31.0-37.0); MEAN CORPUSCULAR VOLUME 96.4 fL (81.0-99.0); MEAN PLATELET VOLUME 9.2 fl (7.4-10.4); MONOCYTES % 8.5 % (2.0-8.0); NEUTROPHILS % 72.3 % (40.0-76.0); PLATELET 230 x1000/uL (130-400); RED BLOOD CELL COUNT 3.67 mill/uL (4.2-5.4); RED CELL DISTRIBUTION WIDTH 18.8 % (11.6-14.6); WHITE BLOOD COUNT 10.8 x1000/uL (4.5-11.0)
[2023-08-22 18:16] LABS: CALCIUM 9.5 mg/dL (8.7-10.4); CREATININE 13.3 mg/dL (0.6-1.0); POTASSIUM 4.5 mEq/L (3.5-5.1)
[2023-08-22 18:52] LABS: HEPATITIS A AB IGM NEGATIVE (Negative); HEPATITIS B CORE AB IGM NEGATIVE (Negative); HEPATITIS B SURFACE ANTIGEN NEGATIVE (Negative); HEPATITIS C AB NON REACTIVE (Neg) (Negative)
[2023-08-22 20:00] VITALS: BP 123/66; PULSE 86; RESP 18; TEMP 98.2
[2023-08-23] VITALS (9 sets, daily range): BP systolic 112–145; BP diastolic 51–78; PULSE 74–100; RESP 15–22; TEMP 97.6–99.1
[2023-08-23] MEDS ORDERED: DIPHENHYDRAMINE 50MG/ML VIAL IV PRN ×2 (05:30→08:30)
[2023-08-23] MEDS: BLOOD SUGAR DIAGNOSTIC STRIP TEST SCH ×4 (05:48→21:00)
[2023-08-23] MEDS: OMEPRAZOLE 20MG CAPSULE EXTENDED RELEASE PO SCH (05:51)
[2023-08-23] MEDS: NITROGLYCERIN OINT 1GM/INCH UDPKT TD SCH ×3 (05:52→22:23)
[2023-08-23] MEDS: INSULIN LISPRO 100 UNITS/ML SUBCUT SCH ×4 (07:20→21:00)
[2023-08-23] MEDS: CEFTAZIDIME PENTAHYDRATE 1 G in DEXTROSE 5% WATER 50 ML IV SCH (09:12)
[2023-08-23 12:24] LABS: BASOPHILS % 1.3 % (0.0-2.0); EOSINOPHILS % 0.8 % (0.0-5.0); HEMATOCRIT. 40.2 % (36.0-48.0); HEMOGLOBIN. 13.4 g/dL (12.0-16.0); LYMPHOCYTES % 35.3 % (20.0-50.0); MEAN CORPUSCULAR HEMOGLOBIN 32.4 pg (28.0-32.0); MEAN CORPUSCULAR HGB CONC 33.2 g/dL (31.0-37.0); MEAN CORPUSCULAR VOLUME 97.4 fL (81.0-99.0); MONOCYTES % 5.8 % (2.0-8.0); NEUTROPHILS % 56.8 % (40.0-76.0); PLATELET 247 x1000/uL (130-400); RED BLOOD CELL COUNT 4.13 mill/uL (4.2-5.4); RED CELL DISTRIBUTION WIDTH 18.6 % (11.6-14.6); WHITE BLOOD COUNT 9.3 x1000/uL (4.5-11.0)
[2023-08-23] MEDS: ASPIRIN 81MG EC TABLET PO SCH (12:52)
[2023-08-23] MEDS: CLOPIDOGREL 75MG TABLET PO SCH (12:52)
[2023-08-23] MEDS: HYDROMORPHONE HCL/PF 2MG/ML CPJ IV PRN (12:53)
[2023-08-23 13:00] LABS: ALANINE AMINOTRANSFERASE < 7 IU/L (10-49); ALBUMIN 4.4 g/dL (3.2-4.8); ASPARTATE AMINOTRANSFERASE 11 IU/L (<34); BILIRUBIN TOTAL 0.3 mg/dL (0.1-1.0); CALCIUM 9.5 mg/dL (8.7-10.4); CARBON DIOXIDE 29 mEq/L (21-32); CHLORIDE 96 mEq/L (98-107); CHOLESTEROL 202 mg/dL (<200); GLUCOSE 149 mg/dL (70-105); HDL CHOLESTEROL 56 mg/dL (>65); LDL CHOLESTEROL 125 mg/dL (5-100); POTASSIUM 3.6 mEq/L (3.5-5.1); SODIUM 134 mEq/L (136-145); T4 FREE 1.01 ng/dL (0.89-1.76); THYROID STIMULATING HORMONE 5.36 uIU/mL (0.55-4.78); TRIGLYCERIDE 109 mg/dL (0-150); TROPONIN I HIGH SENSITIVITY 13 ng/L (3.0-34); UREA NITROGEN BLOOD 26 mg/dL (9-23)
[2023-08-23 13:01] LABS: CREATININE 7.1 mg/dL (0.6-1.0)
[2023-08-23] MEDS: ONDANSETRON HCL 4MG/2ML INJ IV PRN (13:15)
[2023-08-24] VITALS (14 sets, daily range): BP systolic 93–129; BP diastolic 47–74; PULSE 72–100; RESP 14–24; TEMP 98–99
[2023-08-24] MEDS: NITROGLYCERIN OINT 1GM/INCH UDPKT TD SCH ×3 (06:19→23:08)
[2023-08-24] MEDS: BLOOD SUGAR DIAGNOSTIC STRIP TEST SCH ×2 (06:19→21:00)
[2023-08-24] MEDS: INSULIN LISPRO 100 UNITS/ML SUBCUT SCH ×2 (06:19→21:00)
[2023-08-24] MEDS ORDERED: FAMOTIDINE 20MG TABLET PO SCH (09:00)
[2023-08-24] MEDS: ASPIRIN 81MG EC TABLET PO SCH (09:00)
[2023-08-24 10:37] LABS: EOSINOPHILS % 2.1 % (0.0-5.0); HEMOGLOBIN. 11.8 g/dL (12.0-16.0); LYMPHOCYTES % 38.1 % (20.0-50.0); MEAN CORPUSCULAR HGB CONC 32.8 g/dL (31.0-37.0); MEAN CORPUSCULAR VOLUME 97.3 fL (81.0-99.0); MEAN PLATELET VOLUME 8.4 fl (7.4-10.4); MONOCYTES % 10.9 % (2.0-8.0); NEUTROPHILS % 47.9 % (40.0-76.0); PLATELET 229 x1000/uL (130-400); RED CELL DISTRIBUTION WIDTH 18.4 % (11.6-14.6)
[2023-08-24 10:53] LABS: ALANINE AMINOTRANSFERASE < 7 IU/L (10-49); ALBUMIN 3.9 g/dL (3.2-4.8); ASPARTATE AMINOTRANSFERASE 9 IU/L (<34); BILIRUBIN TOTAL 0.2 mg/dL (0.1-1.0); CALCIUM 9.3 mg/dL (8.7-10.4); CARBON DIOXIDE 24 mEq/L (21-32); CHLORIDE 96 mEq/L (98-107); GLUCOSE 78 mg/dL (70-105); POTASSIUM 4.5 mEq/L (3.5-5.1); PROTEIN TOTAL 7.3 g/dL (6.0-8.3); SODIUM 134 mEq/L (136-145); UREA NITROGEN BLOOD 46 mg/dL (9-23)
[2023-08-24] MEDS: CEFTAZIDIME PENTAHYDRATE 1 G in DEXTROSE 5% WATER 50 ML IV SCH (10:55)
[2023-08-24 10:58] LABS: BILIRUBIN DIRECT < 0.1 mg/dL (<=3.0)
[2023-08-24 10:59] LABS: PHOSPHORUS 8.6 mg/dL (2.5-4.9)
[2023-08-24 11:00] LABS: CREATININE 12.8 mg/dL (0.6-1.0)
[2023-08-24 11:03] LABS: TROPONIN I HIGH SENSITIVITY 12 ng/L (3.0-34)
[2023-08-24] MEDS: HYDROMORPHONE HCL/PF 2MG/ML CPJ IV PRN ×2 (12:36→22:55)
[2023-08-24] MEDS: ONDANSETRON HCL 4MG/2ML INJ IV PRN ×2 (12:40→23:07)
[2023-08-24] MEDS ORDERED: IODIXANOL 320MG/ML 100 ML BOTTLE IV ONE ×2 (14:27→15:09)
[2023-08-24] MEDS ORDERED: FENTANYL CITRATE/PF 50MCG/ML 2ML VIAL ONE ×2 (14:27→15:36)
[2023-08-24] MEDS ORDERED: DIPHENHYDRAMINE 50MG/ML VIAL ONE (14:27)
[2023-08-24] MEDS ORDERED: HEPARIN 1000 UNITS/ML 10ML ONE (14:28)
[2023-08-24] MEDS ORDERED: HYDROCORTISONE SOD SUCCINATE 100 MG/2 ML VIAL ONE (14:28)
[2023-08-24] MEDS ORDERED: MIDAZOLAM HCL 2 MG/2 ML VIAL ONE ×2 (14:28→15:02)
[2023-08-24] MEDS ORDERED: FAMOTIDINE 20MG/2ML VIAL IV ONE (14:28)
[2023-08-24] MEDS ORDERED: LIDOCAINE HCL 1% 20ML VIAL (Pyxis) INJ ONE (14:28)
[2023-08-24] MEDS ORDERED: ASPIRIN 325MG TABLET ONE (15:44)
[2023-08-24] MEDS ORDERED: CLOPIDOGREL 75MG TABLET ONE (15:45)
[2023-08-24] MEDS ORDERED: ACETAMINOPHEN 325MG TABLET PO PRN (15:45)
[2023-08-24] MEDS ORDERED: ATROPINE SULFATE 1MG/10ML SYR IV PRN (15:45)
[2023-08-25 04:00] VITALS: BP 138/62; PULSE 90; RESP 20; TEMP 98.8
[2023-08-25] MEDS: NITROGLYCERIN OINT 1GM/INCH UDPKT TD SCH (07:06)
[2023-08-25] MEDS: INSULIN LISPRO 100 UNITS/ML SUBCUT SCH ×2 (07:06→13:40)
[2023-08-25] MEDS: BLOOD SUGAR DIAGNOSTIC STRIP TEST SCH ×2 (07:06→11:50)
[2023-08-25 08:00] VITALS: BP 126/60; PULSE 85; RESP 18; TEMP 98.7
[2023-08-25] MEDS ORDERED: ASPIRIN 325MG TABLET PO SCH (09:00)
[2023-08-25] MEDS ORDERED: CLOPIDOGREL 75MG TABLET PO SCH (09:00)
[2023-08-25] MEDS: CLOPIDOGREL 75MG TABLET PO SCH (10:09)
[2023-08-25] MEDS: CEFTAZIDIME PENTAHYDRATE 1 G in DEXTROSE 5% WATER 50 ML IV SCH (10:10)
[2023-08-25] MEDS: HYDROMORPHONE HCL/PF 2MG/ML CPJ IV PRN (10:24)
[2023-08-25] MEDS ORDERED: POLYETHYLENE GLYCOL 3350 (17GM) 1 DOSE PACK PO SCH (10:30)
[2023-08-25] MEDS: ONDANSETRON HCL 4MG/2ML INJ IV PRN (10:34)
[2023-08-25 11:17] LABS: BASOPHILS % 0.6 % (0.0-2.0); EOSINOPHILS % 1.4 % (0.0-5.0); HEMATOCRIT. 35.1 % (36.0-48.0); HEMOGLOBIN. 11.8 g/dL (12.0-16.0); LYMPHOCYTES % 31.5 % (20.0-50.0); MEAN CORPUSCULAR HEMOGLOBIN 32.7 pg (28.0-32.0); MEAN CORPUSCULAR HGB CONC 33.6 g/dL (31.0-37.0); MEAN CORPUSCULAR VOLUME 97.3 fL (81.0-99.0); MEAN PLATELET VOLUME 8.5 fl (7.4-10.4); MONOCYTES % 8.7 % (2.0-8.0); NEUTROPHILS % 57.8 % (40.0-76.0); PLATELET 231 x1000/uL (130-400); RED CELL DISTRIBUTION WIDTH 18.3 % (11.6-14.6); WHITE BLOOD COUNT 9.7 x1000/uL (4.5-11.0)
[2023-08-25 11:34] VITALS: BP 143/76; PULSE 94; RESP 14; TEMP 98.4
[2023-08-25 12:13] LABS: POTASSIUM 4.2 mEq/L (3.5-5.1)
[2023-08-25 12:19] LABS: CREATININE 10.9 mg/dL (0.6-1.0)
[2023-08-25] MEDS ORDERED: HYDR-4001 MT ×3 (13:03→15:07)
[2023-08-25 15:20] VITALS: BP 143/76; PULSE 94; TEMP 98.4; O2SAT 100
== END 2023-08-25 15:40 | disposition home or self-care (01) | DRG 321 ==
LOC: ER 08:45 → MICUSO 15:08 → 3WST 08-22 01:08
PROVIDERS: ADMIT Family Medicine Adult Medicine; ATTEND Family Medicine Adult Medicine
PROC: 02HV33Z Insertion of Infusion Device into Superior Vena Cava, Percutaneous Approach (ICD-10-PCS; 2023-08-22)
PROC: B5181ZA Fluoroscopy of Superior Vena Cava using Low Osmolar Contrast, Guidance (ICD-10-PCS; 2023-08-22)
PROC: B548ZZA Ultrasonography of Superior Vena Cava, Guidance (ICD-10-PCS; 2023-08-22)
PROC: 5A1D70Z Performance of Urinary Filtration, Intermittent, Less than 6 Hours Per Day (ICD-10-PCS; 2023-08-23)
PROC: 4A023N7 Measurement of Cardiac Sampling and Pressure, Left Heart, Percutaneous Approach (ICD-10-PCS; principal; 2023-08-24)
PROC: 027036Z Dilation of Coronary Artery, One Artery with Three Drug-eluting Intraluminal Devices, Percutaneous Approach (ICD-10-PCS; 2023-08-24)
PROC: B211YZZ Fluoroscopy of Multiple Coronary Arteries using Other Contrast (ICD-10-PCS; 2023-08-24)
PROC: B212YZZ Fluoroscopy of Single Coronary Artery Bypass Graft using Other Contrast (ICD-10-PCS; 2023-08-24)
PROC: B218YZZ Fluoroscopy of Left Internal Mammary Bypass Graft using Other Contrast (ICD-10-PCS; 2023-08-24)
PROC: 5A1D70Z Performance of Urinary Filtration, Intermittent, Less than 6 Hours Per Day (ICD-10-PCS; 2023-08-24)
DX: I25.10 Atherosclerotic heart disease of native coronary artery without angina pectoris (principal); N18.6 End stage renal disease; I13.2 Hypertensive heart and chronic kidney disease with heart failure and with stage 5 chronic kidney disease, or end stage renal disease; I25.810 Atherosclerosis of coronary artery bypass graft(s) without angina pectoris; E66.9 Obesity, unspecified; G89.4 Chronic pain syndrome; J45.909 Unspecified asthma, uncomplicated; E78.00 Pure hypercholesterolemia, unspecified; E04.2 Nontoxic multinodular goiter; I50.9 Heart failure, unspecified; E11.22 Type 2 diabetes mellitus with diabetic chronic kidney disease; Z68.38 Body mass index [BMI] 38.0-38.9, adult; Z79.4 Long term (current) use of insulin; Z82.3 Family history of stroke; Z86.73 Personal history of transient ischemic attack (TIA), and cerebral infarction without residual deficits; Z95.1 Presence of aortocoronary bypass graft; Z99.2 Dependence on renal dialysis; Z79.51 Long term (current) use of inhaled steroids; Z88.0 Allergy status to penicillin; Z91.041 Radiographic dye allergy status; Z95.5 Presence of coronary angioplasty implant and graft
CPT/HCPCS: 36415; 36573; 71045; 71275; 74174; 76536; 80048; 80053; 80061; 80076; 82962; 83735; 83880; 84100; 84439; 84443; 84484; 84703; 85025; 85347; 85379; 86705; 86709; 87340; 90935; 92928; 93005; 93306; 93459; 93970; 99285; C1725; C1769; C1874; C1887; C1893; J0713; J1170; J1200; J1644; J1650; J1720; J1815; J2250; J2270; J2405; J2997; J3010; J3490; J7060; J7512; Q9967

== ENCOUNTER 2024-06-09 12:03 | Emergency (ER) | payer MEDICARE, MEDICAID ==
[~2024-06-09] VITALS: Ht 167.6 cm; Wt 85.0 kg
[~2024-06-09 12:03] MED LIST changes: +FOLI0.8T53 MT; +INSNOV SUBCUT; +INSU100I28 SQ; +IPRA3AMP9 HHN; -METO10TA3 MT; +MOME13HF12 INH; -NEPVIT MT; +ONDA-239 PO; -ONDA4TAB11 PO; +SACU1TAB7 MT; -SENN-257 PO; +SENN-362 PO; -SEVE800T8 PO; +SIMV-46 PO; -SIMV10TA97 PO; +SUCR500T PO; +TIRZ10PE SUBCUT
[2024-06-09 12:10] VITALS: BP 150/52; PULSE 92; RESP 16; TEMP 98.7; O2SAT 100
[2024-06-09] MEDS ORDERED: MORPHINE SULFATE 2 MG/ML INJ (NOT FOR IM USE) IV NR (12:30)
[2024-06-09 12:42] LABS: BASOPHILS % 0.9 % (0.0-2.0); HEMATOCRIT. 40.1 % (36.0-48.0); HEMOGLOBIN. 13.1 g/dL (12.0-16.0); LYMPHOCYTES % 21.2 % (20.0-50.0); MEAN CORPUSCULAR HGB CONC 32.6 g/dL (31.0-37.0); MEAN CORPUSCULAR VOLUME 92.2 fL (81.0-99.0); MEAN PLATELET VOLUME 7.3 fl (7.4-10.4); MONOCYTES % 8.4 % (2.0-8.0); NEUTROPHILS % 68.5 % (40.0-76.0); PLATELET 355 x1000/uL (130-400); RED BLOOD CELL COUNT 4.35 mill/uL (4.2-5.4); RED CELL DISTRIBUTION WIDTH 19.4 % (11.6-14.6); WHITE BLOOD COUNT 10.1 x1000/uL (4.5-11.0)
[2024-06-09 12:54] LABS: CARBON DIOXIDE 24 mEq/L (21-32); CHLORIDE 96 mEq/L (98-107); POTASSIUM 4.8 mEq/L (3.5-5.1); SODIUM 136 mEq/L (136-145)
[2024-06-09 12:55] LABS: CALCIUM 9.8 mg/dL (8.7-10.4)
[2024-06-09 13:00] LABS: GLUCOSE 110 mg/dL (70-105); UREA NITROGEN BLOOD 56 mg/dL (9-23)
[2024-06-09 13:01] LABS: ALANINE AMINOTRANSFERASE < 7 IU/L (10-49); ASPARTATE AMINOTRANSFERASE 11 IU/L (<34)
[2024-06-09 13:02] LABS: ALBUMIN 4.6 g/dL (3.2-4.8); BILIRUBIN TOTAL 0.2 mg/dL (0.1-1.0); PROTEIN TOTAL 8.3 g/dL (6.0-8.3)
[2024-06-09 13:20] LABS: BILIRUBIN DIRECT < 0.1 mg/dL (<=3.0); CREATININE 15.6 mg/dL (0.6-1.0)
[2024-06-09 13:22] LABS: TROPONIN I HIGH SENSITIVITY 45 ng/L (3.0-34)
[2024-06-09 13:30] LABS: HCG SCREEN NEGATIVE
== END 2024-06-09 12:27 | disposition left against medical advice (07) ==
LOC: ER 12:03 → EDBEDREQ 12:24 → ER 12:27
DX: R07.9 Chest pain, unspecified (principal); E78.00 Pure hypercholesterolemia, unspecified; E11.22 Type 2 diabetes mellitus with diabetic chronic kidney disease; I12.0 Hypertensive chronic kidney disease with stage 5 chronic kidney disease or end stage renal disease; N18.6 End stage renal disease; J45.909 Unspecified asthma, uncomplicated; I25.10 Atherosclerotic heart disease of native coronary artery without angina pectoris; Z99.2 Dependence on renal dialysis; Z88.0 Allergy status to penicillin; Z79.899 Other long term (current) drug therapy; Z91.041 Radiographic dye allergy status; Z88.8 Allergy status to other drugs, medicaments and biological substances
CPT/HCPCS: 36415; 71045; 80048; 80076; 83880; 84484; 84703; 85025; 93005; 99285